=== PATIENT | male | born 1950 | race Caucasian/White ===

== ENCOUNTER → 2016-11-12 | Outpatient (CLI) | payer OTHER ==
[~2016-11-12] MED LIST: ADULT LOW DOSE81 MG PO; BRILINTA 90 MG90 MG PO; LOPRESSOR 25 MG25 MG PO
== END ==
LOC: HEART 5 07:18
DX: R07.9 Chest pain, unspecified (principal)
CPT/HCPCS: 78452; A9502; J2785

== ENCOUNTER → 2017-01-07 | Outpatient (CLI) | payer OTHER | LOC: KOH-I 01-06 08:00 → US 01-06 13:00 | DX: I82.812 Embolism and thrombosis of superficial veins of left lower extremity (principal); I73.9 Peripheral vascular disease, unspecified | CPT/HCPCS: 93926; 93971 ==

== ENCOUNTER 2020-09-18 06:28 | Emergency (ER) | payer MEDICARE ==
[~2020-09-18 06:28] MED LIST changes: +ADVAIR 250-501 EACH INH; +AMARYL 2MG TABLE2 MG PO; +BRILINTA90 MG PO; +CO Q-1010 MG PO; +CO Q-10100 MG PO; +COZAAR25 MG PO; +DULERA 200 MCG8.8 GM INH; +GLUCOPHAGE 500500 MG PO; +IMDUR ER TAB 3030 MG PO; +JANUVIA100 MG PO; +LASIX20 MG PO; +NEXIUM40 M1 PO; +NITROSTAT 0.40.4 MG SL; +OMEGA 3 1,0001 EACH PO; +PRALUENT 75 MG/ML SQ; +PRALUENT PO; +PROTONIX20 MG PO; +TOUJEO SC; +VIBRAMYCIN100 MG PO; +VITAMIN D31000 UNIT PO; +VITAMIN D3400 UNIT PO
[2020-09-25] MEDS ORDERED: PLAVIX 75 MG TA75 MG PO (08:38)
[2020-09-25] MEDS ORDERED: CO Q-10100 MG PO (08:39)
[2020-09-25] MEDS ORDERED: [UNRECOGNIZED DRUG - OTHER] SC (08:39)
[2020-09-25] MEDS ORDERED: REPATHA INJ (08:40)
[2020-09-25] MEDS ORDERED: PROTONIX 40 MG40 M1 PO (08:41)
== END 2020-09-18 08:07 | disposition other institution (70) ==
LOC: ER1 06:28
DX: T17.228A Food in pharynx causing other injury, initial encounter (principal); E11.9 Type 2 diabetes mellitus without complications; J44.9 Chronic obstructive pulmonary disease, unspecified; Z95.1 Presence of aortocoronary bypass graft; Z95.5 Presence of coronary angioplasty implant and graft; Z90.49 Acquired absence of other specified parts of digestive tract; X58.XXXA Exposure to other specified factors, initial encounter
CPT/HCPCS: 99284

== ENCOUNTER 2020-09-25 15:57 | Emergency (ER) | payer MEDICARE ==
[~2020-09-25 15:57] MED LIST changes: -AUGMENTIN 875-1 EACH PO; -MYLANTA MAXIMU355 ML PO; -ONDANSETRON ODT4 MG SL; -PROTONIX40 MG PO
[2020-09-25 17:00] LABS: RED BLOOD COUNT 4.65 M/UL (4.20-5.50); WHITE BLOOD COUNT 18.1 K/UL (4.5-11.0)
[2020-09-25 17:21] LABS: BUN/CREATININE RATIO 39 (0-10)
== END 2020-09-25 20:10 | disposition home or self-care (01) ==
LOC: ER1 15:57
PROVIDERS: Physician Assistant
DX: K92.0 Hematemesis (principal); E11.9 Type 2 diabetes mellitus without complications; E78.5 Hyperlipidemia, unspecified; J44.9 Chronic obstructive pulmonary disease, unspecified; I51.9 Heart disease, unspecified; Z90.49 Acquired absence of other specified parts of digestive tract; Z95.1 Presence of aortocoronary bypass graft; Z79.82 Long term (current) use of aspirin; Z79.899 Other long term (current) drug therapy; Z88.2 Allergy status to sulfonamides
CPT/HCPCS: 71260; 80053; 85025; 85610; 86850; 86900; 86901; Q9967

== ENCOUNTER → 2020-09-25 | Day surgery (SDC) | payer MEDICARE ==
[~2020-09-25] MED LIST changes: +AUGMENTIN 875-1 EACH PO; +MYLANTA MAXIMU355 ML PO; +ONDANSETRON ODT4 MG SL; +PLAVIX 75 MG TA75 MG PO; +PROTONIX 40 MG40 M1 PO; +PROTONIX40 MG PO; +REPATHA INJ; +[UNRECOGNIZED DRUG - OTHER] SC
== END | disposition home or self-care (01) ==
LOC: OR 07:52
PROVIDERS: Internal Medicine Gastroenterology
PROC: 0D758ZZ Dilation of Esophagus, Via Natural or Artificial Opening Endoscopic (ICD-10-PCS; principal; 2020-09-25 09:38)
DX: K22.2 Esophageal obstruction (principal); K44.9 Diaphragmatic hernia without obstruction or gangrene; K21.00 Gastro-esophageal reflux disease with esophagitis, without bleeding; E11.9 Type 2 diabetes mellitus without complications; I10 Essential (primary) hypertension; J44.9 Chronic obstructive pulmonary disease, unspecified; I25.10 Atherosclerotic heart disease of native coronary artery without angina pectoris; E66.9 Obesity, unspecified; Z68.29 Body mass index [BMI] 29.0-29.9, adult; Z87.891 Personal history of nicotine dependence; Z88.2 Allergy status to sulfonamides; Z79.02 Long term (current) use of antithrombotics/antiplatelets; Z79.82 Long term (current) use of aspirin; Z79.4 Long term (current) use of insulin; Z79.899 Other long term (current) drug therapy; Z95.5 Presence of coronary angioplasty implant and graft; Z88.8 Allergy status to other drugs, medicaments and biological substances; Z20.822 Contact with and (suspected) exposure to COVID-19
CPT/HCPCS: 71260; 80053; 82962; 85025; 85610; 86850; 86900; 86901; 99285; J2001; J2704; J7040; Q9967

== ENCOUNTER 2021-01-18 17:00 | Emergency (ER) | payer MEDICARE ==
[2021-01-18 18:37] LABS: HEMOGLOBIN 13.9 gm/dl (14.0-17.5); RED BLOOD COUNT 5.16 M/UL (4.20-5.50); WHITE BLOOD COUNT 16.9 K/UL (4.5-11.0)
[2021-01-18 18:52] LABS: BUN/CREATININE RATIO 21 (0-10)
[2021-01-18] MEDS ORDERED: MYLANTA MAXIMU355 ML PO (21:27)
[2021-01-18] MEDS ORDERED: ONDANSETRON ODT4 MG SL (21:27)
[2021-01-18] MEDS ORDERED: PROTONIX40 MG PO (21:27)
[2021-01-18] MEDS ORDERED: AUGMENTIN 875-1 EACH PO (22:03)
[2021-01-18 23:47] LABS: ADENOVIRUS F 40/41 Not Detected (Negative); ASTROVIRUS Not Detected (Negative); CLOSTRIDIUM DIFFICILE TOX A/B Not Detected (Negative); CRYPTOSPORIDIUM Not Detected (Negative); E.COLI 0157 Not Detected (Negative); ENTAMOEBA HISTOLYTICA Not Detected (Negative); ENTEROAGGREGATIVE E.COLI (EAEC Not Detected (Negative); ENTEROPATHOGENIC E.COLI (EPEC) Not Detected (Negative); ENTEROTOXIGENIC E.COLI (ETEC) Not Detected (Negative); GIARDIA LAMBLIA Not Detected (Negative); NOROVIRUS GI/GII Not Detected (Negative); PLESIOMONAS SHIGELLOIDES Not Detected (Negative); ROTOVIRUS A Not Detected (Negative); SALMONELLA Not Detected (Negative); SAPOVIRUS Not Detected (Negative); SHIG/ENTEROINVAS.ECOLI (EIEC) Not Detected (Negative); SHIGA-LIK TOX.PRO.E.COLI (STEC Not Detected (Negative); VIBRIO Not Detected (Negative); VIBRIO CHOLERAE Not Detected (Negative); YERSINIA ENTEROCOLITICA Not Detected (Negative)
[2021-01-19 08:34] LABS: CAMPYLOBACTER DETECTED (Negative)
== END 2021-01-18 22:20 | disposition home or self-care (01) ==
LOC: ER1 17:00
PROVIDERS: Emergency Medicine
DX: K63.89 Other specified diseases of intestine (principal); J44.9 Chronic obstructive pulmonary disease, unspecified; I10 Essential (primary) hypertension; E11.9 Type 2 diabetes mellitus without complications; I25.10 Atherosclerotic heart disease of native coronary artery without angina pectoris; Z95.1 Presence of aortocoronary bypass graft; Z79.899 Other long term (current) drug therapy; Z90.49 Acquired absence of other specified parts of digestive tract; Z88.1 Allergy status to other antibiotic agents; Z20.822 Contact with and (suspected) exposure to COVID-19
CPT/HCPCS: 0240U; 71045; 73090; 80053; 81001; 83605; 83690; 85025; 87507; 96374; 99284; J2405; Q9967

== ENCOUNTER → 2021-05-26 | Outpatient (CLI) | payer MEDICARE ==
[~2021-05-26] MED LIST changes: +AUGMENTIN 875-1 EACH PO; +MYLANTA MAXIMU355 ML PO; +ONDANSETRON ODT4 MG SL; +PROTONIX40 MG PO
== END ==
LOC: KOH-I 09:09
DX: R91.1 Solitary pulmonary nodule (principal); J98.4 Other disorders of lung
CPT/HCPCS: 71250

== ENCOUNTER 2022-01-06 21:40 | Inpatient (IN) | payer MEDICARE ==
[~2022-01-06] VITALS: Ht 162.6 cm; Wt 79.4 kg
[2022-01-07 06:32] LABS: HEMOGLOBIN 12.4 gm/dl (14.0-17.5); RED BLOOD COUNT 4.38 M/UL (4.20-5.50); WHITE BLOOD COUNT 14.8 K/UL (4.5-11.0)
[2022-01-07 06:35] LABS: BUN/CREATININE RATIO 29 (0-10)
[2022-01-07] MEDS ORDERED: ESOMEPRAZOLE MA40 MG PO (11:11)
[2022-01-07] MEDS ORDERED: FLOMAX 0.4 MG0.4 MG PO (11:11)
[2022-01-07] MEDS ORDERED: FENOFIBRATE145 MG PO (11:11)
[2022-01-07] MEDS ORDERED: PROVENTIL HFA6.7 GM INH (11:12)
[2022-01-07] MEDS ORDERED: TOUJEO MAX300 UNIT/1 SQ (12:31)
[2022-01-07] MEDS ORDERED: REPATHA SY140 MG/1 M SQ (12:32)
[2022-01-07] MEDS ORDERED: MONTELUKAST SOD10 MG PO (12:33)
[2022-01-07] MEDS ORDERED: ADVAIR 250-501 EACH INH (12:34)
[2022-01-07] MEDS ORDERED: STOOL SOFTENER100 MG PO (12:35)
[2022-01-07] MEDS ORDERED: CENTRUM SILVER1 EAC2 PO (12:36)
[2022-01-07 15:41] LABS: HEMOGLOBIN 12.6 gm/dl (14.0-17.5); RED BLOOD COUNT 4.37 M/UL (4.20-5.50); WHITE BLOOD COUNT 11.8 K/UL (4.5-11.0)
[2022-01-07 16:12] LABS: BUN/CREATININE RATIO 22 (0-10)
[2022-01-08 04:46] LABS: HEMOGLOBIN 11.1 gm/dl (14.0-17.5); WHITE BLOOD COUNT 11.5 K/UL (4.5-11.0)
[2022-01-08 04:56] LABS: RED BLOOD COUNT 3.86 M/UL (4.20-5.50)
[2022-01-08 05:24] LABS: BUN/CREATININE RATIO 21 (0-10)
[2022-01-09 04:09] LABS: HEMOGLOBIN 10.1 gm/dl (14.0-17.5); RED BLOOD COUNT 3.5 M/UL (4.20-5.50); WHITE BLOOD COUNT 13.7 K/UL (4.5-11.0)
[2022-01-09 04:28] LABS: BUN/CREATININE RATIO 21 (0-10)
[2022-01-09] MEDS ORDERED: ENOXAPARIN40 MG/0.4 SC (18:31)
[2022-01-09] MEDS ORDERED: HYDROCODON-ACE1 EAC4 PO (18:31)
== END 2022-01-09 19:25 | disposition home health service (06) | DRG 482 ==
LOC: ER1 21:40 → M/S 01-07 00:25 → CDU 01-07 00:25 → M/S 01-07 14:22
PROVIDERS: Internal Medicine; Orthopaedic Surgery; ADMIT Internal Medicine
PROC: B24BZZZ Ultrasonography of Heart with Aorta (ICD-10-PCS; 2022-01-07)
PROC: 0QS706Z Reposition Left Upper Femur with Intramedullary Internal Fixation Device, Open Approach (ICD-10-PCS; principal; 2022-01-07 16:40)
DX: S72.142A Displaced intertrochanteric fracture of left femur, initial encounter for closed fracture (principal); E11.9 Type 2 diabetes mellitus without complications; I25.10 Atherosclerotic heart disease of native coronary artery without angina pectoris; J44.9 Chronic obstructive pulmonary disease, unspecified; K21.9 Gastro-esophageal reflux disease without esophagitis; N40.0 Benign prostatic hyperplasia without lower urinary tract symptoms; E86.0 Dehydration; R91.1 Solitary pulmonary nodule; I10 Essential (primary) hypertension; E78.5 Hyperlipidemia, unspecified; W18.30XA Fall on same level, unspecified, initial encounter; Z95.1 Presence of aortocoronary bypass graft; I25.2 Old myocardial infarction; Z90.49 Acquired absence of other specified parts of digestive tract; Z98.890 Other specified postprocedural states; Z82.49 Family history of ischemic heart disease and other diseases of the circulatory system; Z88.2 Allergy status to sulfonamides; Z87.891 Personal history of nicotine dependence; Z79.82 Long term (current) use of aspirin; Z79.02 Long term (current) use of antithrombotics/antiplatelets; Z79.899 Other long term (current) drug therapy
CPT/HCPCS: ECHO; 36415; 73502; 73552; 76000; 80053; 82550; 82553; 82607; 82746; 82962; 83036; 83735; 84100; 84439; 84443; 84484; 84550; 85025; 85027; 85610; 86850; 86900; 86901; 93005; 93306; 94003; 94760; 96374; 96375; 97110-GP-CQ; 97116; 97116-GP-CQ; 97162; 97165; 99284; C1713; J0690; J1100; J1170; J1650; J2001; J2250; J2270; J2405; J2704; J3010